=== PATIENT | female | born 1950 | race Caucasian/White ===

== ENCOUNTER 2016-09-09 10:23 | Inpatient (IN) | payer MEDICARE ==
[~2016-09-09] VITALS: Ht 172.7 cm; Wt 104.0 kg
--- NOTE | ~2016-09-09 | WND ---
ADMIT: 09/09/2016 RM/LOC: 312 [facility] MR#: [id number] [id number] [facility] [address] [place], [place] [phone] AMANDA ARMENTA [address], [place] [address] W[facility] SEX: F AGE: 66 : 1950 DATE OF VISIT: 09/10/2016 TIME IN: 1515 hours. TIME OUT: 1530 hours. REASON FOR VISIT: Evaluation and treatment of skin concerns. HISTORY OF PRESENT ILLNESS: This is a 66-year-old, female, who presented to the emergency room on 09/09/2016 after being transferred from the [facility]. She had been transferred with altered mental status and diffuse maculopapular rash. In the emergency room, she was altered and unable able to provide a history, so her was able to provide the information. They are from [place], [place] and recently traveled down to be with Rohit's mother over the weekend. She had been seen by Wound Care in [place] for a wound to the posterior surface of her left leg and had been prescribed Augmentin for that wound. The journey to [place] was uneventful. She was her usual self until 09/07/2016 in the evening. She has a history of spastic paralysis and has difficulty walking, so she uses a walker. She was experiencing lower extremity weakness. She became confused, sat down on the toilet and was unable to get up. She was in her usual state of health until Thursday afternoon or late evening when she started to have episodes of vomiting. It sounded like she was instructed to vomit in a container, but she was unable to follow instructions, continued to vomit in her hand. Her upper extremities seemed to be spastic and rigid. This had never happened before. states the rigidity and spasticity is usually in her lower legs. She became a little more confused and so was taken to the [facility] where the initial workup was completed and transferred to [facility] for further level of care. It was felt that she was septic from the wound on her left posterior calf. Upon admission to the emergency room, she was confused and agitated and was placed in isolation and a septic workup was initiated including a lumbar puncture. She was started on IV antibiotics urgently. She is also noted to have a rash that started on 09/06/2016. In the emergency room, her temperature was 101.3, blood pressure 113/58, respirations 25, pulse 65. She had a sat of 92% on 2 L of oxygen per nasal cannula. Her [place] Coma Scale was 11. A Schmitz was placed. She is currently being followed by Infectious Disease who are trying to determine the reason for the rash. She also had three skin biopsies done by Surgery in order to help delineate the cause of the rash and her change in behavior. Wound Care is consulted because of the ulceration on her left posterior calf and on her left plantar heel. PAST MEDICAL HISTORY: Hypertension. Hyperlipidemia. Type 2 diabetes. Left posterior calf wound, recently treated with Augmentin. 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 ALLERGIES: No known medication allergies. CURRENT MEDICATIONS: Per the MAR. Please see the MAR for further details. ADMIT: 09/09/2016 RM/LOC: 312 [facility] MR#: [id number] [address] [place] [id number] KATHI AMANDA ORDAZ [address] [place], [place] [id number] [facility] SEX: F AGE: 66 : 1950 1. Aspirin. 2. Heparin. 3. NovoLog. 4. Decadron. 5. D5W. 6. Levophed. 7. LR. 8. Rocephin. 9. Vancomycin. 10.Vibramycin. PRN medications: 1. Tylenol. 2. Tylenol suppository. 3. Nitrostat. 4. Nitro-Bid. 5. Ativan. 6. Benadryl. SOCIAL HISTORY: Obtained from previous records indicate that she never had tobacco or significant alcohol use. No drug use in the past. She lives at home with her in [place], [place]. Currently not employed. She ambulates with walker given her spastic paralysis. FAMILY HISTORY: Obtained from the charts indicate heart disease, cancer, hypertension, diabetes. REVIEW OF SYSTEMS: The patient just returned from having an MRI of her brain. She is awake and alert. She does answer some questions appropriately. She keeps wanting to go to the restroom even though she has a Schmitz in place. She denies any current discomfort, only that she would like to go to the bathroom. I am unable to obtain any other review of systems. PHYSICAL EXAMINATION: Focused exam: Body wide exam shows a diffuse maculopapular rash, body wide. It does seem to be sparing the feet. On her posterior back, lower back, buttocks, and upper thighs is blanchable purple. This seems to be from lying on her back. There are no openings noted in any of the sacral, coccyx, buttocks area. To her left posterior calf is an ulceration that today measures 1 x 0.8 with a depth of 0.2 cm. It has irregular-shaped borders. It does have yellowish wound base. There is evidence of peeling epithelium and a thin circular crust surrounding it. Minimal serous drainage noted. It is also in the midst of the rash. On her plantar surface of her heel is a hard and callused area with a small 0.3 cm x 0.3 cm darkened area. No surrounding erythema or induration. No drainage noted. To the medial right calf is an area that measures 1 x 1.5 cm of thin crust. No surrounding erythema or induration noted. Other than the rash, no other areas of concern identified on her skin. ADMIT: 09/09/2016 RM/LOC: 312 [facility] MR#: [id number] [address] [id number] AMANDA ARMENTA [address] [place] [address] Wound Care Clinic SEX: F AGE: 66 : 1950 ASSESSMENT: 1. Body wide rash, etiology unknown. 2. Callused left heel, posterior left calf with full-thickness ulceration, and crust to right medial calf. TREATMENT PLAN: At this point in time, we will leave the heel open to air. We will continue to monitor the sacral, coccyx, buttocks area. Requested position changes every 2 hours. Low air loss mattress if she leaves the ICU. She is currently only on an AccuMax mattress. Requested her heels be floated off surfaces. Requested chair air cushion. To the posterior left calf wound, we will do daily dressing changes with Aquacel covered with 4 x 4 and tape. As far as the peeling crust on the right inner calf the knee area on her left heel, at this point in time, we will leave these open to air. Thank you for allowing us to care for this patient. Toya Gan APRN/ yasmin JOB #: [id number] CC: Carroll Padilla, Attending Physician Carroll Padilla, Family Physician
--- NOTE | ~2016-09-09 | ECH ---
Transthoracic Echocardiography Report (TTE) Demographics Patient Name AMANDA ARMENTA Date of Study 09/10/2016 SUSHMA Patient Number [id number] Visit Number [id number] Date of 1950 Room Number 312 Accession Number [id number] Gender Female Age 66 year(s) Referring Randy Morales MD Pellet Press Operator Aleksandra Souza [facility] Physician Physician Sendy Ramos MD Propagation Manager Physician Shade Supervising Ordering Physician Tom Gusman MD, MD/P Nurse Stress Relations Liaison Conclusions Contractility Score Summary Normal Left Ventricular contractility was noted. Summary Technically difficult exam to perform due to body habitus/respirations/patient movement. The estimated left ventricular ejection fraction is 60-65%. Mild left ventricular hypertrophy. The aortic valve was not well imaged but appears mildly sclerotic with a mean gradient of 12mmHg. Trivial tricuspid regurgitation by color Doppler. Recommendation The patient will be given the results of this study by the physician who ordered the exam. Procedure Type of Study TTE procedure:Echo Complete SF. Procedure Date Date: 09/10/2016 Start: 03:58 Technical Quality: Fair due to body habitus. Indications:Heart murmur, Fever and Hypertension. Additional Indications:rash, sepsis, encephalopathy Appropriate Use Criteria: 9 Height: 68 inches Weight: 229.01 pounds BSA: 2.16 m Rhythm: Within normal limits HR: 61 bpm BP: 112/79 mmHg M-Mode/2D Measurements LV Diastolic Dimension: 4.48 cm LV Systolic Dimension: 3.14 cm LV Septum Diastolic: 1.08 cm LV PW Diastolic: 1.1 cm AO Root Dimension: 2.16 cm Cardiac Output: 5.31 l/min LA Dimension: 4.35 cm Cardiac Index: 2.46 l/min*m RV Diastolic Dimension: 4.15 cm LA volume index: 18 ml/m LVOT: 1.71 cm LVOT VTI: 37.9 cm RV Base: 3.35 cm LV Stroke volume: 87 ml RV Mid: 2.29 cm LV Stroke volume index: 40.28 ml/m RV Length: 7.44 cm Doppler Measurements AV Peak Velocity: 2.44 m/s MV Peak E-Wave: 1.38 m/s AV Peak Gradient: 23.81 mmHg MV Peak A-Wave: 0.87 m/s AV Mean Gradient: 12.4 mmHg MV E/A Ratio: 1.58 LVOT Peak Velocity: 1.32 m/s MV P1/2t: 95.4 msec AV Area (Continuity):1.32 cm TR Velocity:1.9 m/s MV Deceleration Time: 329 msec TR Gradient:14.44 mmHg MV Area (PHT): 2.31 cm Estimated RAP:10 mmHg PV Peak Velocity: 1.38 m/s Estimated RVSP: 24 mmHg PV Peak Gradient: 7.62 mmHg Estimated PASP: 24.44 mmHg RA Area: 15 cm Findings Left Ventricle The left ventricle is normal in size . Mild left ventricular hypertrophy. Diastolic assessment reveals normal relaxation. Right Ventricle Normal right ventricle structure and function. Left Atrium Normal left atrial size. Right Atrium Normal right atrial size. Mitral Valve Normal mitral valve structure and function. Aortic Valve The aortic valve was not well imaged but appears mildly sclerotic with a mean gradient of 12mmHg. Tricuspid Valve Normal tricuspid valve structure and function. Trivial tricuspid regurgitation by color Doppler. Pulmonic Valve The pulmonic valve is not well visualized. Pericardial Effusion No evidence of pericardial effusion. Miscellaneous Visualized portions of the aortic root and ascending aorta appear normal in size. Pleural Effusion No evidence of pleural effusion. Signature
--- NOTE | 2016-09-12 16:58 | HP ---
ADMIT: 09/09/2016 RM/LOC: 312 [facility] MR#: [id number] [facility] [address] [place], [place] [address] AMANDA LANDEROS [address] [place] [address] History and Physical SEX: F AGE: 66 : 1950 DATE OF SERVICE: HISTORY OF PRESENT ILLNESS: Ms. Amanda Landeros is a 66-year-old female with past medical history significant for type 2 diabetes, hypertension, hyperlipidemia, and spastic paralysis of lower extremities leading to chronic leg wounds, who presents to our Emergency Department after being transferred from the [facility]. She was transferred for altered mental status and diffuse maculopapular rash. The patient is currently altered and unable to provide a history. History is obtained from her , Rohit, who is also her DPOA. Rohit states that they are from [place], [place] and recently traveled down to be with Rohit's mother over the . He states that they started their travel on Thursday, but the day previously she had been seen by her Wound Care team and prescribed Augmentin for a small ulcer on the posterior surface of her left leg. He states that the journey down to [place] was uneventful. He states that she was her usual self until approximately Thursday evening. He states that given her spastic paralysis, she does have difficulties walking and uses a walker. She also has lower extremity weakness and needs a riser on the toilet. He states that on Thursday night she became confused and sat down on the toilet without the riser in place and was unable to get up. He states that this seemed to upset her. She was then noted to be in her usual state of health until Thursday afternoon and late evening when she started to have episodes of vomiting. He states that she did not seem to be herself. He states that he would tell her to vomit in to a container, but she continued to vomit into her hands. He states that he noted that her upper extremities seem to be spastic as well and were very rigid. He states that this is unusual has never happened before. He states that most of her rigidity and spasticity is in her lower extremities. He states that then through the rest of the evening, she was a bit more altered and seemed to be hallucinating. He states that she seemed to be trying to catch imaginary fireflies. She continued to be altered and have recurrent episodes of emesis throughout the evening of Thursday night. This morning early at approximately 1:00 a.m., he had the [facility] transfer her to the [facility]. While in the [facility], initial workup was completed and she was sent to [place] for higher level of care. He states that she had been complaining of being more hot recently and he wonders if she was febrile. She also was noted to have decreased urine output over the last 24 hours preceding this hospitalization. He denies anybody else around her being ill with a GI illness. He states that she was noted to start developing a rash on Thursday. This rash had continued to progress over Thursday and into Thursday as well. Otherwise, he thinks that she has been in her usual state of health. He denies any changes to her medications. He denies that she could have possibly miss taken her medications. In our emergency room, she was noted to be confused and quite combative. Her vitals were initially a blood pressure of 113/58, MAP of 71, pulse of 65, respiration rate of 25, and temperature of a 101.3 Fahrenheit with an SpO2 of 92% on 2 L nasal cannula. Her [place] Coma Scale was 11. She had received 1 L of normal saline at the [facility] in [place] and then received an additional liter in our Emergency Room. She also received lumbar puncture completed by Anesthesia with the assistance of etomidate as a sedative. She also received Rocephin as well as vancomycin IV for antibiotics. ADMIT: 09/09/2016 RM/LOC: 312 [facility] MR#: [id number] [address] [address] AMANDA LANDEROS [address] [place] [phone] History and Physical SEX: F AGE: 66 : 1950 A Schmitz was placed and she was agitated enough that she actually removed the Schmitz and it was replaced. The CSF was sent for cell count and differential, protein and glucose, Gram-stain and culture, as well as acid-fast and cryptococcal. There was also a rapid bacteria antigen screen to be completed on the CSF. PAST MEDICAL HISTORY: Her states that she has a history of a spastic paralysis. He is unable to tell me much more about her past medical history. From her home medication list it appears that she has hypertension as well as hyperlipidemia and type 2 diabetes. PAST SURGICAL HISTORY: No past surgical history noted. HOME MEDICATIONS: Include: 1. Lisinopril 20 mg p.o. daily. 2. Potassium chloride 20 mEq twice daily. 3. Simvastatin 20 mg p.o. daily. 4. Baclofen 20 mg five times daily. 5. Furosemide 20 mg twice daily. 6. Augmentin 875 mg p.o. b.i.d. for 10 days, started on 09/02/2016 for leg wound. 7. Atenolol 100 mg p.o. daily for blood pressure. 8. Januvia 100 mg p.o. daily diabetes. 9. Aspirin 81 mg daily. ALLERGIES: NO KNOWN MEDICAL ALLERGIES. SOCIAL HISTORY: As far as her know she has never consumed tobacco or significant use of alcohol. Denies any drug use in her past. Lives at home with her in [place], [place]. She is not currently employed. She does ambulate with a walker given her spastic paralysis. FAMILY MEDICAL HISTORY: Not obtained from the patient. PHYSICAL EXAMINATION: VITAL SIGNS: Temperature of 101.0, pulse of 76 with a max of 104, respiration rate of 20 with max of 32, blood pressure 107/51, and SpO2 of 94% on 2 L nasal cannula. GENERAL: She is quite agitated at times and then becomes more somnolent at other times. She does not answer questions appropriately. She for the most part, thrashes around widely in the bed. She does have restraints in place on her upper extremities. HEENT: Normocephalic and atraumatic. She has extraocular eye muscles that are intact. Pupils are equal and reactive. She does have dry mucous membranes. HEART: Regular rate and rhythm. No murmurs detected. No rubs or gallops. It is noted that during the exam, she is quite active about in the bed. LUNGS: Clear to auscultation bilaterally on anterior exam. ABDOMEN: Distended with adiposity. It is soft and nontender. EXTREMITIES: She demonstrates good movement of her upper extremities. She does ADMIT: 09/09/2016 RM/LOC: 312 [facility] MR#: [id number] [address] [address] [address]A [address] [place], [place] [id number] History and Physical SEX: F AGE: 66 : 1950 not follow commands to move her lower extremities. She does have some edema over the lower extremities, however, it appears that the edema is currently quite a bit less than it has been in the past. She does have a small approximately 1.5 cm pressure ulcer over the posterior left calf. She has dry skin over her feet. SKIN: She has a diffuse maculopapular rash. It is coalesced into one large red patch over her chest, neck, and part of her face. It then thins a bit over her arms and legs. There does not appear to be any drainage from the area. There are no vesicles. There is no sloughing of the skin. She does not appear to have any oral ulcers, but her mucosa is quite dry. NEUROLOGIC: She does not follow commands and is unable to participate fully in the neurologic exam. She does spontaneously open her eyes. She has inappropriate words and she does withdraw to pain. This makes her [place] Coma Scale of 10. PSYCH: Unable to assess given her altered mental state. LABORATORY DATA: Labs at the [facility] in [place], [place], she had a white blood cell count of 16.4 with 91% of those being neutrophils, hemoglobin was 15.3, and her platelets were 165. Her rapid strep test was negative. She did have urine that was slightly cloudy, but negative for nitrites or leukocyte esterase. She did have rare WBC and some small amount of blood with occasional bacteria seen. Urine drug screen was negative in [place] and repeat urine drug screen is negative here at [place]. Her BMP was significant for glucose of 221, creatinine of 2.05, albumin of 2.9, calcium of 7.9, and alkaline phosphatase of 45. This was again at [place]. CT of the head at [place] did not show any mass or midline shift or acute hemorrhage. At [place], her CBC demonstrated a white count of 16.6 with hemoglobin of 14.7, and platelets of 174. Her ANC was 15.4. Her CMP was significant for a glucose of 212, a creatinine of 1.8, and calcium of 7.8. Her troponin was less than 0.015. Her creatine kinase was 235. Her lactic acid was 2.3 initially and repeat demonstrated a level of 2.2. Her procalcitonin was 6.97. Her CSF cell count demonstrated 2 white blood cells and less than 2000 red blood cells. Her total protein on the CSF was 45 and her glucose was 130. The Gram stain did not identify any bacteria and the culture is pending as is the Streptococcus. Her chest radiograph demonstrated a normal heart size with left basilar consolidation concerning for pneumonia. This concludes lab and imaging section on Ms. Trejo. ASSESSMENT AND PLAN: Ms. Landeros is a 66-year-old female with past medical history significant for hypertension, hyperlipidemia, type 2 diabetes, as well as spastic paralysis, who presents with a 5-day history of rash and approximately 24-hour history of acute altered mental status change. She was transferred from [facility] in [place], [place] to [place] for higher level of care. She is meeting criteria for severe sepsis. 1. Severe sepsis of unknown etiology. She does have a temperature greater than 100.4 Fahrenheit as well as greater than 12,000 WBCs. The source of the infection is not completely clear at this point in time, but she does have a mild lactic acidosis. She is not currently have evidence of ADMIT: 09/09/2016 RM/LOC: 312 [facility] MR#: [id number] [facility] [address] [place] [id number] AMANDA LANDEROS [address] [place] [id number] History and Physical SEX: F AGE: 66 : 1950 greater than two organs failing as her LFTs are okay. She does have a bit of kidney dysfunction. At this point in time, the differential is broad and includes things such as UTI, pneumonia, meningitis that might be viral in nature. At this point in time, we will cover her with broad- spectrum antibiotics. This will include Rocephin 2 g IV daily as well as vancomycin with pharmacy to adjust the dose based off her renal function also to include doxycycline with pharmacy to adjust the dose as needed. She will be placed on empiric acyclovir with pharmacy for DEATH CLAIM CLERK permeation. If possible, we will obtain an MRI tomorrow with recommendations of Neurology, who has been consulted for her altered mental status. We will continue to follow up her cultures that she has had here. She has had some blood cultures as well. Urine cultures obtained here. We will aggressively fluid resuscitate her. She is working on her fourth liter of normal saline at this point in time. We will use pressors as indicated. Indication would be for MAP less than 55. 2. Altered mental status. This has been fairly abrupt in onset over the last 24 hours. She did demonstrate some hallucination yesterday per her . This could be secondary to a CSF infection. This would include things such as bacterial meningitis as well as viral meningitis. Could also include things such as encephalitis. At this point in time, I think that her likelihood of having bacterial meningitis is fairly small. She does not have significant number of white blood cell count in her CSF. Her protein is within normal range and her glucose is high at 130. However, this does not completely exclude meningitis of the viral or bacterial etiology. We will continue to follow recommendations of Neurology for her altered mental status. Special testing will be done for ehrlichiosis as well as human granulocytic anaplasmosis. Recommended spotted fever will also be tested for. She will also have HSV 1 and 2 and PCR CSF completed as well as VZV on PCR of the CSF and serum. 3. Maculopapular rash. This could be attributed to her infection. Meningococcal could also provide a rash. It also could be a drug reaction. At this point in time, we will consider placing her on empiric steroids. 4. Type 2 diabetes. We will hold her Januvia at this point in time given her altered mental status as well as infection. We will start her on low-dose sliding scale insulin for correction of high blood sugars. Her aspirin 81 mg will be continued at this point in time. 5. Hypertension. At this point in time, she does not have an issue with hypertension. This is probably related to her sepsis. We will hold her lisinopril as well as her atenolol and furosemide. ADMIT: 09/09/2016 RM/LOC: 312 [facility] MR#: [id number] [address] [place] [phone] KATHI AMANDA ORDAZ [address] [place], [place] [id number] History and Physical SEX: F AGE: 66 : 1950 6. Hyperlipidemia. We will hold her simvastatin at this point in time. 7. Spastic paralysis of her lower extremities. Wound Care has been consulted for the wound that is present. We will follow their recommendations for wound care. We will hold her Augmentin at this point in time. 8. Presumed acute kidney injury. We will see how she responds to the fluid boluses. I suspect that it is most likely prerenal at this point in time, given her history of the emesis and poor p.o. intake over the last couple of days. Other etiologies include the use of the Augmentin, although this is less likely. 9. Deep venous thrombosis prophylaxis. We will place her on heparin 5000 units subcu q.8 hours until her renal function improves. We will also have her SHANIKA hose in place. Deepika Alcala MD Resident / Carroll Padilla MD / modl JOB #: [id number] CC: Carroll Padilla, Attending Physician Carroll Padilla, Family Physician
--- NOTE | 2016-09-14 08:54 | DS ---
ADMIT: 09/09/2016 RM/LOC: 312 [facility] MR#: [id number] [facility] [address] AMANDA ARMENTA [address] [place] [address] General Discharge Summary SEX: F AGE: 66 : 1950 ADMISSION DATE: 09/09/2016 DISCHARGE DATE: 09/12/2016 FINAL DIAGNOSES: 1. Fever, mental status changes/encephalopathy. 2. Diffuse rash. 3. Bradycardia. 4. Hypertension. 5. Hypoxic respiratory failure. 6. History of hereditary spontaneous paralysis. REASON FOR ADMISSION: This is a 66-year-old female from [place], who presented to an outside facility with mental status changes and a diffuse rash. See dictated H and P for further details. HOSPITAL COURSE: The patient was admitted, initially treated with Rocephin and vancomycin, doxycycline for possible meningitis and question tick-borne disease, so those tests were sent off. Initial LP testing was not consistent with meningitis given the low white cell count. She also had Neurology consulted, who added acyclovir for possible HSV. MRI was done of the brain which was normal. The patient had a skin biopsy which results are pending at this time. The history the patient had was possibly consistent with some penicillin exposure the Thursday before the presentation on the Thursday, so it was felt she could have a drug reaction. She was put on Benadryl and steroids. Symptoms seemed to improve a little and then got worse again on the . She started having some bradycardic episodes with normal sinus rhythm. Echocardiogram revealed normal ejection fraction and normal valves. Early in the morning of the , she started having some respiratory distress. ENT consult revealed some subglottic tracheal edema. She was given high-dose steroids, but even so was developing more respiratory distress, so she was ADMIT: 09/09/2016 RM/LOC: 312 [facility] MR#: [id number] [address] [facility] [address] [place], [place] [address] [address] [place], [place] [id number] General Discharge Summary SEX: F AGE: 66 : 1950 intubated. At that time, because we had no pulmonary coverage here in our hospital, felt she would best be served by being in a facility who had such care. Therefore, arrangements were made to transfer her to [facility]. It should be noted the patient was kept in respiratory isolation because of possible viral causes including measles. The patient was continued on her same medications on transport. Because of bradycardia, she had a little bit of dopamine that was added on the day of discharge as well. She was placed on the ventilator and transferred by [facility] ambulance. It should be noted that over 30 minutes was spent in evaluation of her and in conversation with her regarding her overall care and need for further options. Carroll Padilla MD/ yasmin JOB #: [id number] CC: Carroll Padilla MD, Attending Physician Carroll Padilla MD, Family Physician
--- NOTE | 2016-09-17 06:36 | CO ---
ADMIT: 09/09/2016 RM/LOC: 312 [facility] MR#: [id number] [address] [address] AMANDA LANDEROS [address] [place], [place] [id number] Consultation SEX: F AGE: 66 : 1950 DATE OF CONSULTATION: 09/12/2016 ATTENDING PHYSICIAN: Carroll Padilla MD CONSULTING PHYSICIAN: Todd Bowles MD CHIEF COMPLAINT: Labored breathing with expiratory stridor. HISTORY OF PRESENT ILLNESS: I was asked to consult on Ms. Landeros for evaluation of her airway due to stridor, progressive hypoxemia, requiring increasing levels of oxygen supplementation. She has been hospitalized with unknown illness causing edema, exanthem, respiratory distress, and mental confusion. PHYSICAL EXAMINATION: GENERAL: Shows her to be agitated in her hospital bed, but responsive to commands. HEENT: Her pupils are equal. Her nose is patent. No purulent discharge. Mouth and pharynx are normal in appearance. Tongue shows no edema, good mobility. Oropharynx symmetrical without obstruction. NECK: Generalized mild edema. No palpable masses, adenopathy, thyroid nodules, or masses. PROCEDURE: Fiberoptic examination of the upper aerodigestive tract performed transnasally with the patient in the semi supine position. Her nasal airway is patent. There is no purulence in the nasal cavity nor nasopharynx. The nasopharynx is patent. Oropharynx appears symmetrical without obstruction. Hypopharynx and larynx, good symmetry, structure, and function. The vocal cords were normal in appearance. No edema. Each vocal cord moves to both abduction and abduction and the visible portion of the subglottic trachea appears nonobstructive. The piriform recess of each side was patent, minimal hypopharyngeal edema. Supraglottic larynx, vallecula, base of tongue, normal. IMPRESSION: Expiratory stridor, probable tracheal edema (auscultation of lungs reveals symmetrical breath sounds with no crackly rales nor wheeze). RECOMMENDATION: Decadron 20 mg IV with suspicion of tracheal edema. Continue oxygen supplement as needed. Todd Bowles MD/ yasmin JOB #: [id number] CC: Carroll Padilla MD, Attending Physician Carroll Padilla MD, Family Physician
--- NOTE | 2016-09-18 15:58 | CO ---
ADMIT: 09/09/2016 RM/LOC: 312 [facility] MR#: [id number] [address] [facility] [address] [place] [address] AMANDA ARMENTA [address] [place], [place] [id number] Consultation SEX: F AGE: 66 : 1950 DATE OF CONSULTATION: 09/09/2016 ATTENDING PHYSICIAN: Carroll Padilla CONSULTING PHYSICIAN: Manuel Barrett MD REASON FOR CONSULTATION: Delirium. HISTORY OF PRESENT ILLNESS: The patient is a 66-year-old woman with past medical history as below, who was transferred from [facility] to [facility] for evaluation of altered mental status and diffuse maculopapular rash and was noted to have fever. The patient has a history of some spastic paraparesis and has pressure ulcers for which reason she was given Augmentin last week. She developed a rash which was significant with fever and became acutely confused on 09/09 in the morning. The day before yesterday, she was also vomiting as well. PAST MEDICAL HISTORY: Spastic paraparesis, hypertension, and hyperlipidemia. MEDICATIONS: Home medications include: 1. Lisinopril. 2. Potassium. 3. Simvastatin. 4. Baclofen. 5. Furosemide. 6. Augmentin. 7. Atenolol. 8. Januvia. 9. Aspirin. ALLERGIES: NO KNOWN DRUG ALLERGIES. SOCIAL HISTORY: No smoking. No illicit drugs. No alcohol. FAMILY HISTORY: Unable to obtain from the patient. REVIEW OF SYSTEMS: Unable to obtain from the patient secondary to her acute confusion. PHYSICAL EXAMINATION: VITAL SIGNS: Temperature 101.0, heart rate 69, respiration 19, blood pressure 103/4, and saturation 91%. GENERAL: The patient is actively delirious. HEAD: Normocephalic. NECK: Supple. CHEST: Normal respirations. CARDIOVASCULAR: Regular rate and rhythm. ABDOMEN: Nondistended. EXTREMITIES: No clubbing or cyanosis. SKIN: She has a maculopapular rash all over. ADMIT: 09/09/2016 RM/LOC: 312 [facility] MR#: [id number] [address] [address] AMANDA ARMENTA [address] [place] [id number] Consultation SEX: F AGE: 66 : 1950 NEUROLOGICAL EXAMINATION: The patient is awake, but confused. She is able to tell me her name. She is disoriented to place and time. At the time of the evaluation, she is restless. Cranial nerves: Visual briggs appear to be intact. Pupils equal and reactive. Extraocular muscles intact. Facial sensation is normal. Face is symmetric. Hearing to voice intact. Uvula midline. Palatal arch is symmetric. Shoulder shrug symmetric. Tongue midline, fairly moveable. Motor examination: Upper extremities, full strength. Lower extremities, weakness with some mild spasticity. Examination, sensory to touch is nonlateralizing. Reflexes brisk in upper extremities and lower extremities. Absent in ankles. Toes are upgoing bilaterally. Coordination difficult to obtain. Gait unable to walk. LABORATORY DATA: Labs reviewed in electronic medical record. CBC shows leukocytosis 16.6, prothrombin INR normal CMP shows creatinine 1.8 calcium 7.8, albumin 2.9. GFR is 29. CK is 235. CK-MB 9.9. Lactic acid 2.3 on admission. UA is cloudy with 2+ protein, 3+ blood, leukocyte esterase 2+, wbc's 50, rbc's 6. Many uric acid crystals and few mucus. The patient already underwent LP with CSF protein 45, glucose 130. Cell count, white cells are1 and rbc's was in 2000. Procalcitonin 6.97. Chest x-ray shows left basilar opacity, likely pneumonia. CT of the head unavailable to review in our hospital UDS is negative. ASSESSMENT: 1. Agitative-type of delirium with fever and rash. 2. History of HSP. PLAN: Original plan is to add on HSV PCR on CSF VZV PCR and antibodies on PCR and serum, decided to start acyclovir despite normal CSF appearance even HSV encephalitis can have normal CSF findings. This will be kept up until the MRI is possible to obtain or PCR comes back. By the time of the dictation of her note, MRI was obtained which was unremarkable. There was no changes seen in the temporal lobes. ID business consultant already discontinued acyclovir which I agree with at this time. Thank you very much for this interesting consultation. Manuel Barrett MD/ yasmin JOB #: [id number] CC: Carroll Padilla, Attending Physician Carroll Padilla, Family Physician
--- NOTE | 2016-09-22 08:58 | OR ---
ADMIT: 09/09/2016 RM/LOC: 312 [facility] MR#: [id number] [address] [address] AMANDA ARMENTA [address] [place] [address] Operative/Delivery Room Report SEX: F AGE: 66 : 1950 SURGERY DATE: 09/10/2016 SURGEON: Pancho Hoffman MD INDICATIONS FOR PROCEDURE: Rash. PROCEDURE: Skin punch biopsy x3 using a 3 mm skin punch biopsy. ANESTHESIA: 1% lidocaine with epinephrine local anesthetic. DESCRIPTION OF PROCEDURE: The patient was kept in her hospital bed in supine position. After further examination, 3 areas were located for punch biopsy sites and all were anesthetized with 1% lidocaine with epinephrine. All in all, about approximately 12 mL of lidocaine was used. Each site was prepped with ChloraPrep and using a 3 mm skin punch biopsy, specimens were obtained. After adequate hemostasis was achieved, a single 3-0 nylon stitch was applied at each punch biopsy site. Her abdominal site required 2 punch biopsies, so 4 stitches were applied, all together. The patient was cleaned off, sterile dressing was applied. The patient tolerated it well. Specimens will be sent off for further pathology. RAYO Wynn / Pancho Hoffman MD / modl JOB #: [id number] CC: Carroll Padilla, Attending Physician Carroll Padilla, Family Physician
--- NOTE | 2016-09-28 15:51 | ER ---
ADMIT: 09/09/2016 RM/LOC: ER [facility] MR#: [id number] [address] [place], [place] [address] AMANDA ARMENTA [address] [place], [place] [id number] Emergency Room Report SEX: F AGE: 66 : 1950 DATE: 09/09/2016 This 66-year-old female, who was transferred down from [place]. She apparently developed a fever and altered mental status on Thursday and then subsequently a rash developed. She was seen in the [place] [facility] where they diagnosed her with sepsis that was secondary to a stage II decubitus ulcer on her right calf. She, according to her , had been seen by [facility] in [place] and placed on Augmentin for that ulcer. Did CBC, CMP, UA and subsequently transferred her down here. Upon arrival, she was noted to have a rash and was confused and agitated and was placed in isolation immediately and septic workup was initiated including an LP. Results of LP are pending at time of this dictation. Rocephin and vancomycin began urgently. White count was 16.6, her BUN 36, her glucose 212, creatinine 1.8, and lactic acid 2.3. Again CSF pending at time of this dictation. The patient is being admitted to the ICU. DIAGNOSES: 1. Rash. 2. Altered mental status. 3. Acute renal failure. Eulogio Dooley MD/ modl JOB #: [id number] CC: Eulogio Dooley MD, Attending Physician UNKNOWN, Family Physician
--- NOTE | 2016-09-29 10:41 | CO ---
ADMIT: 09/09/2016 RM/LOC: 312 [facility] MR#: [id number] [address] [address] AMANDA ARMENTA [address] [place], [place] [id number] Consultation SEX: F AGE: 66 : 1950 DATE OF CONSULTATION: 09/10/2016 ATTENDING PHYSICIAN: Carroll Padilla CONSULTING PHYSICIAN: Delicia Santos MD REASON FOR CONSULTATION: Rash and fever. Thank you, Dr. Padilla, for the consult and involving me in this patient's care. HISTORY OF PRESENT ILLNESS: The patient is a 66-year-old female, who resides in [place], presented to the ER from [facility] for altered mental status, fever, and diffuse maculopapular rash. The patient traveled over the weekend to [place] and was brought into the ER for worsening confusion and diffuse rash all over her body from head to legs. She was admitted to ICU and a skin biopsy was done today. A lumbar puncture was done and CSF analysis was unremarkable. The patient was apparently very agitated overnight and required restraints. At present, the patient is calm and answering questions appropriately. It is difficult to get a complete history from her, but from her prior notes, she does have a history of spastic paralysis of her legs and has chronic leg wounds for which she was following up [facility] [place]. She was recently prescribed Augmentin and per the patient, she is able to tolerate penicillins without any problem. PAST MEDICAL HISTORY: 1. Spastic paralysis. 2. Diabetes mellitus. 3. Hypertension. ALLERGIES: KNOWN DRUG ALLERGIES. CURRENT MEDICATIONS: 1. Aspirin. 2. Heparin. 3. Decadron. 4. Ceftriaxone 2 g once daily. 5. Vancomycin 1.5 g once daily. 6. Doxycycline 100 mg twice daily. 7. Acyclovir 640 mg twice daily. SOCIAL HISTORY: She lives at home with her . Denies any smoking, alcohol, or recreational drug use. FAMILY HISTORY: Significant for diabetes mellitus in her mother. REVIEW OF SYSTEMS: A 10-point review of systems is negative except as mentioned in HPI. ADMIT: 09/09/2016 RM/LOC: 312 [facility] MR#: [id number] [address] [address] KATHI ILYA [address] [place] [address] Consultation SEX: F AGE: 66 : 1950 PHYSICAL EXAMINATION: VITAL SIGNS: Current temperature 98.3, T-max 102.1, heart rate 60, respirations 24, blood pressure 109/45, and 94% on 2 L. GENERAL: No acute distress. HEENT: Head is normocephalic and atraumatic. Extraocular movements intact. NECK: Supple. Oral mucosa dry. She has mild crusting on her lower lip. LYMPHS: There is palpable submandibular lymph nodes, tender to palpation. CHEST: Decreased breath sounds bilaterally. CARDIOVASCULAR: 2 x 6 systolic murmur. SKIN: Diffuse maculopapular rash including her face, chest, back, anterior and posterior thigh up to her knees. The rash also involves bilateral palms. There is deep tissue injury in the left heel and small ulcer in the left calf. ABDOMEN: Soft, nontender, and nondistended. Active bowel sounds. PSYCH: Normal affect. Memory, slightly impaired. NEUROLOGIC: Alert and oriented x2. DATA REVIEW: CBC today shows white count of 21.3, hemoglobin 12.5, platelets 154 with ANC of 18.7 and eosinophils 0.8. BMP shows creatinine of 1.1. Sodium of 146. Cultures, there is no growth to date. CT head was unremarkable. CSF analysis was unremarkable. ASSESSMENT AND PLAN: 1. Altered mental status/encephalopathy. 2. Diffuse maculopapular rash. 3. Sepsis. 4. Diabetes mellitus. The etiology of rash is unclear at this time. Differential diagnosis include tick-borne illnesses like [place] spotted fever, endocarditis, measles, secondary syphilis. The patient denies any known tick bites. At this time, I will stop the acyclovir. I will continue ceftriaxone and vancomycin until blood cultures are finalized. Continue with doxycycline as well for now. Skin biopsies are done which are pending at this time. I will also send serologies for measles antibody and check for syphilis. Her chest x-ray showed questionable pneumonia. I will get a CT chest without contrast and a peripheral smear as well. Brain MRI is pending at this time. She has murmur and we will check an echocardiogram to rule out any cardiac valve involvement. Thank you for the consult. I will continue to follow the patient. Delicia Santos MD/ yasmin JOB #: [id number] CC: Carroll Padilla, Attending Physician ADMIT: 09/09/2016 RM/LOC: 312 [facility] MR#: [id number] [address] [place] [id number] AMANDA ARMENTA [address] [place] [address] Consultation SEX: F AGE: 66 : 1950 Carroll Padilla, Family Physician
== END 2016-09-12 14:40 | disposition short-term general hospital (02) | DRG 871 ==
LOC: ER 10:23 → 3ICU 13:00
PROVIDERS: ADMIT Internal Medicine
PROC: 009U3ZX Drainage of Spinal Canal, Percutaneous Approach, Diagnostic (ICD-10-PCS; principal; 2016-09-09)
PROC: 0HBEXZX Excision of Left Lower Arm Skin, External Approach, Diagnostic (ICD-10-PCS; 2016-09-10)
PROC: 0HB7XZX Excision of Abdomen Skin, External Approach, Diagnostic (ICD-10-PCS; 2016-09-10)
PROC: 0HBLXZX Excision of Left Lower Leg Skin, External Approach, Diagnostic (ICD-10-PCS; 2016-09-10)
PROC: 0CJS8ZZ Inspection of Larynx, Via Natural or Artificial Opening Endoscopic (ICD-10-PCS; 2016-09-12)
PROC: 0BH17EZ Insertion of Endotracheal Airway into Trachea, Via Natural or Artificial Opening (ICD-10-PCS; 2016-09-12)
PROC: 5A1935Z Respiratory Ventilation, Less than 24 Consecutive Hours (ICD-10-PCS; 2016-09-12)
DX: A41.9 Sepsis, unspecified organism (principal); J96.01 Acute respiratory failure with hypoxia; G93.40 Encephalopathy, unspecified; N17.9 Acute kidney failure, unspecified; I95.9 Hypotension, unspecified; E87.2 Acidosis; J38.4 Edema of larynx; G11.4 Hereditary spastic paraplegia; L89.620 Pressure ulcer of left heel, unstageable; L89.892 Pressure ulcer of other site, stage 2; R65.20 Severe sepsis without septic shock; R21 Rash and other nonspecific skin eruption; R00.1 Bradycardia, unspecified; E11.9 Type 2 diabetes mellitus without complications; I10 Essential (primary) hypertension; E78.5 Hyperlipidemia, unspecified; Z79.82 Long term (current) use of aspirin; Z79.84 Long term (current) use of oral hypoglycemic drugs